=== PATIENT | female | born 1955 | race Caucasian/White ===

== ENCOUNTER 2022-04-10 16:54 | Emergency (ER) | payer MEDICARE, OTHER ==
[2022-04-10] MEDS ORDERED: Sodium Chloride 0.9% 1,000 ML IV STA (18:24)
[2022-04-10] MEDS ORDERED: Sodium Chloride 0.9% 10 ML Syringe FLUSH PRN (18:24)
[2022-04-10] MEDS ORDERED: Ondansetron 4 MG/2 ML SDV IVPUSH ONE (18:24)
== END 2022-04-10 20:28 | disposition home or self-care (01) ==
LOC: JD.ED 16:54
DX: R11.2 Nausea with vomiting, unspecified (principal); R19.7 Diarrhea, unspecified; Z88.0 Allergy status to penicillin; Z88.8 Allergy status to other drugs, medicaments and biological substances
CPT/HCPCS: 36415; 80053; 83735; 85025; 86140; 96361; 96374; 99284; J2405; J3490; J7030

== ENCOUNTER 2022-12-19 09:22 | Emergency (ER) | payer MEDICARE, OTHER ==
[2022-12-19 10:59] LABS: APPEARANCE,URINE CLEAR (Clear); BASOPHILS ABSOLUTE AUTO 0.04 K/mm3 (0.01-0.08); BASOPHILS PERCENT AUTO 0.8 % (0.1-1.2); BILIRUBIN,URINE NEGATIVE (Negative); COLOR,URINE YELLOW (Yellow); EOSINOPHILS ABSOLUTE AUTO 0.14 K/mm3 (0.04-0.36); EOSINOPHILS PERCENT AUTO 2.7 (0.7-5.8); GLUCOSE,URINE NEGATIVE (Negative); HEMATOCRIT 40.7 % (34.1-44.9); HEMOGLOBIN 13.1 gm/dl (11.2-15.7); IMMATURE GRAN ABSOLUTE AUTO 0.01 K/mm3 (0.00-0.10); IMMATURE GRAN PERCENT AUTO 0.2 % (<=1.0); KETONES,URINE NEGATIVE (Negative); LEUKOCYTE ESTERASE,URINE NEGATIVE (Negative); LYMPHOCYTES PERCENT AUTO 31.4 % (19.3-51.7); MEAN CORPUSCULAR HEMOGLOBIN 28.9 pg (25.6-32.2); MEAN CORPUSCULAR HGB CONC 32.2 g/dl (32.2-35.5); MEAN CORPUSCULAR VOLUME 89.6 fl (79.4-94.8); MEAN PLATELET VOLUME 9.7 fl (9.4-12.3); MONOCYTES ABSOLUTE AUTO 0.43 K/mm3 (0.24-0.36); MONOCYTES PERCENT AUTO 8.4 % (4.7-12.5); NEUTROPHILS ABSOLUTE AUTO 2.88 K/mm3 (1.56-6.13); NEUTROPHILS PERCENT AUTO 56.5 % (34.0-71.1); NITRITE,URINE NEGATIVE (Negative); OCCULT BLOOD,URINE TRACE-INTACT (Negative); PH,URINE 6.5 (5.0-8.0); PLATELET COUNT,PLT 348 K/mm3 (182-369); PROTEIN,URINE 2+ (Negative); RED BLOOD CELL COUNT 4.54 M/mm3 (3.98-5.22); UROBILINOGEN,URINE 0.2 (0.2-1.0)
[2022-12-19 11:13] LABS: A/G RATIO 0.9 (1-2); ALBUMIN 3.7 g/dl (3.4-5.0); BILIRUBIN TOTAL 0.3 mg/dL (0.2-1.0); BUN/CREATININE RATIO 18.6 (14-18); CALCIUM 9.3 mg/dL (8.5-10.1); CREATININE 0.7 mg/dL (0.55-1.02); EST CRCL DRUG DOSING (CG) 62.53 mL/min; PROTEIN TOTAL,TP 7.7 g/dl (6.4-8.2)
[2022-12-19 11:18] LABS: BACTERIA,URINE FEW /hpf (FEW); MUCUS,URINE MANY /hpf (FEW); RBC,URINE 0-5 /hpf (0-5); RENAL EPITHELIAL CELLS,URINE 0-5 /hpf (0-5); SQUAMOUS EPITHELIAL CELLS,UR 0-5 /hpf (0-5); WBC,URINE 0-5 /hpf (0-5)
[2022-12-19 11:37] LABS: PROTHROMBIN TIME 9.6 SECONDS (9.7-12.0)
[2022-12-19 11:40] LABS: INR < 0.93
[2022-12-19] MEDS ORDERED: cloNIDine 0.1 MG Tab PO ONE (12:11)
[2022-12-19] MEDS: Labetalol 100 MG/20 ML MDV IVPUSH ONE ×2 (14:19→14:54)
== END 2022-12-19 16:10 | disposition home or self-care (01) ==
LOC: JD.ED 09:22
DX: I10 Essential (primary) hypertension (principal); Z88.1 Allergy status to other antibiotic agents; Z88.0 Allergy status to penicillin; Z88.8 Allergy status to other drugs, medicaments and biological substances; Z88.5 Allergy status to narcotic agent
CPT/HCPCS: 36415; 71045; 80053; 81001; 83735; 84484; 85025; 85610; 93005; 99284; A9270; J3490; 93010